=== PATIENT | female | born 1995 | race Two or more races ===

== ENCOUNTER → 2019-05-27 | Outpatient (CLI) | payer OTHER | END | disposition home or self-care (01) | LOC: PRENATAL 10:00 | DX: O35.3XX1 Maternal care for (suspected) damage to fetus from viral disease in mother, fetus 1 (principal) ==

== ENCOUNTER 2019-09-20 19:05 | Inpatient (IN) | payer OTHER ==
[~2019-09-20] VITALS: Ht 162.6 cm; Wt 66.7 kg
[2019-09-20] MEDS ORDERED: PRENATAL TABLE1 EAC3 PO (19:13)
== END 2019-09-23 18:33 | disposition home or self-care (01) | DRG 807 ==
LOC: LDR 19:05 → OB/GYN 09-21 01:43
PROVIDERS: ADMIT Obstetrics & Gynecology; ATTEND Obstetrics & Gynecology
PROC: 10E0XZZ Delivery of Products of Conception, External Approach (ICD-10-PCS; principal; 2019-09-21)
PROC: 4A1HXFZ Monitoring of Products of Conception, Cardiac Rhythm, External Approach (ICD-10-PCS; 2019-09-21)
PROC: 0HQ9XZZ Repair Perineum Skin, External Approach (ICD-10-PCS; 2019-09-21)
PROC: 3E033VJ Introduction of Other Hormone into Peripheral Vein, Percutaneous Approach (ICD-10-PCS; 2019-09-21)
DX: O70.0 First degree perineal laceration during delivery (principal); Z37.0 Single live birth; Z3A.38 38 weeks gestation of pregnancy